=== PATIENT | female | born 1970 | race Caucasian/White ===

== ENCOUNTER 2020-04-22 10:13 | Emergency (ER) | payer MEDICARE, MEDICAID, SELFPAY ==
[2020-04-22 10:16] VITALS: BP 166/90; PULSE 93; RESP 18; TEMP 36.4; O2SAT 99; BMI 29.2
[2020-04-22 10:24] VITALS: BP 166/90; PULSE 91; RESP 24; O2SAT 100
--- NOTE | 2020-04-22 10:24 | ED_ITS ---
HPI - Eye Problem General: Chief complaint: Eye Problems Stated complaint: L EYE PAIN Time Seen by Provider: 04/22/20 10:24 History of Present Illness: HPI Narrative: Patient is a 50-year-old female comes to the ED with left eye pain. Patient says she has had history of glaucoma and left eye and her previous eye doctor had to relieve pressure. Patient just moved to [place] from [place]. She does not currently have an eye doctor here in [place]. Acute eye pain started last night. She is also reporting having blurry vision out of the left eye as well. Associated symptoms: Denies fever(s), headache(s), nausea, neck pain or vomiting Review of Systems Const: Denies: fever(s), chills or fatigue Eyes: Reports: blurry vision (left eye), eye discomfort (left eye) and eye discharge (eyes are watering); Denies: change in vision ENMT: Denies: throat pain, odynophagia, nasal discharge or nasal congestion Card: Denies: chest pain, palpitations, edema, swelling of feet/ankles, dyspnea on exertion or orthopnea Resp: Denies: dyspnea, productive cough or non-productive cough GI: Denies: abdominal pain, nausea, vomiting, diarrhea, constipation or hematochezia : Denies: flank pain, dysuria or hematuria Musc: Denies: neck pain, back pain or extremity swelling Skin/Breast: Denies: rash or new lesions Neuro: Denies: headache(s), numbness in extremities or weakness in extremities Physical Exam Const: COMMON NORMALS: patient oriented x3 and alert GENERAL APPEARANCE: cooperative; not comfortable (pt uncomfortable and moaning out in pain.) HENMT: COMMON NORMALS: normocephalic HEAD & SCALP: normocephalic MOUTH: Normal oral and palatal mucosa present THROAT: posterior oropharynx normal and uvula midline Eye: COMMON NORMALS: Equal, round and reactive pupils present and conjunctivae normal PERIORBITAL: periorbital findings normal CONJUNCTIVA: Yes conjunctivae normal PUPIL: Yes Equal, round and reactive pupils present OTHER: Patient's left eye was watering and was tender to the touch. iCare Tonometer- Right eye-22mmhg. Left Eye--first test 71mmhg and 2nd 55mmhg Neck/C-Spine: COMMON NORMALS: supple GENERAL: Yes normal visual inspection Resp: COMMON NORMALS: normal respiratory effort, No retractions, No use of accessory muscles and clear to auscultation bilaterally AUSCULTATION: clear to auscultation bilaterally Cardio: COMMON NORMALS: regular rate, regular rhythm, S1 normal heart sound present, S2 normal heart sound present, No gallops present (Cardio), No clicks present (Cardio), No murmurs present (Cardio) and Peripheral pulses 2+ throughout RATE: regular rate RHYTHM: regular rhythm HEART SOUNDS: S1 normal heart sound present and S2 normal heart sound present PERIPHERAL PULSES: Peripheral pulses 2+ throughout GI: COMMON NORMALS: Normal to inspection, nondistended, normoactive bowel sounds present, Soft to palpation, non-tender and no masses PALPATION: Yes Soft to palpation : COMMON NORMALS: Yes no CVA tenderness BLADDER/KIDNEY EXAM: Yes no CVA tenderness Back/Pelvis: COMMON NORMALS: no CVA tenderness Extremity: COMMON NORMALS: normal to inspection Neuro: COMMON NORMALS: patient oriented x3 and moves all extremities SENSORIUM/ORIENTATION: Yes alert Skin: GENERAL SKIN EXAM: dry skin Course Consultations: Consultation #1: I contacted Dr. Banegas the eye doctor and told him about patient case and Icare tonometer readings in the left eye. He recommended I give patient 500 mg of Diamox and send patient over to his clinic [facility]. Vital Signs: Vital signs: Vital Signs Temperature 98.9 F 04/22/20 11:35 Pulse Rate 95 04/22/20 11:35 Respiratory Rate 24 H 04/22/20 11:35 Blood Pressure 167/90 04/22/20 11:35 Pulse Oximetry 99 04/22/20 11:35 MDM - Eye Problem MDM Narrative: Medical decision making narrative: Patient is a 50-year-old female comes to the ED with acute left eye pain. She has a history of having glaucoma in the left eye and has had to get pressure in high relieved by immigration law specialist. I performed iCare tonometer and she had elevated pressure readings in left eye. I contacted Dr. Banegas and told him about patient case and her left eye pressure readings. He wanted me to give patient 500 mg of Diamox and send her straight over to his office in [place]. I discharge patient after she received the Diamox and gave her the Dr. Banegas eye clinic contact information. I told her to go straight over to Dr. Banegas eye clinic and that he is expecting her. Patient understood and agreed with plan. Discharge Plan Discharge Patient Disposition: Home Clinical Impression: Glaucoma (increased eye pressure) Qualifiers: Glaucoma type: unspecified Laterality: left Qualified Code(s): H40.9 - Unspecified glaucoma Condition: Stable Prescriptions: No Action Tylenol 325 mg Tablet 1,300 mg PO PRN RF: 0 levothyroxine 125 mcg tablet See Rx Instructions .ROUTE .COMPLEX RF: 0 omeprazole 20 mg Capsule,Delayed Release(Dr/Ec) 20 mg PO DAILY PRN (Reason: Acid Reflux) RF: 0 lisinopril-hydrochlorothiazide 10-12.5 mg tablet 1 tab PO DAILY RF: 0 Discharge Orders: Discharge ED (Routine); Ordered 04/22/20 Ordered By: Brando Amado Referrals: ZOE Pereira, SNEHA [Nurse Practitioner] - Discharge Diet: Regular Discharge Activity: Resume usual activity Patient Instructions: Glaucoma (ED) Activity Restrictions/Additional Instructions: Follow-up with medical provider as directed. Leave the ED here directly go to [facility] at [address] in [facility]. Their phone number is [phone]. I spoke with Dr. Banegas and he is expecting you. Return to the ER or your medical provider if condition worsens. Please read and understand angy rhoades instructions. If any questions, please ask. Coding Level of Care Code ED Pan Devulcanizer for Dutch Fwd Exam Comprehensive
[2020-04-22 10:41] VITALS: RESP 20
[2020-04-22] MEDS: morphine 4 mg/mL SDV 1 mL IM (10:41)
--- NOTE | 2020-04-22 10:43 | PC.PHAR ---
pt states she is suppose to be taking lisinopril/hctz 10-12.5 daily,levothyroxine 125mcg daily-ext med history shows last filled on 10/28/2019 pt states she takes when she can afford them and that she has insurance now so she can get them-pt states she had some lisinopril/hctz left so she took one today 04/22/20
[2020-04-22] MEDS: HYDROcodone-acetaminophen 7.5-325 mg Tablet 1 TAB PO (11:32)
[2020-04-22] MEDS: acetaZOLAMIDE 250 mg Tablet 500 MG PO (11:33)
[2020-04-22 11:35] VITALS: BP 167/90; PULSE 95; RESP 24; TEMP 37.2; O2SAT 99
== END 2020-04-22 11:37 | disposition home or self-care (01) ==
PROVIDERS: Emergency Provider Physician Assistant; PCP Nurse Practitioner Family
DX: H40.9 Unspecified glaucoma (principal)
CPT/HCPCS: 12345; 96372; 99281; 99283; J2270

== ENCOUNTER 2021-03-13 09:49 | Outpatient (CLI) | payer MEDICARE, MEDICAID, SELFPAY ==
[2021-03-13 10:18] VITALS: BP 139/83; PULSE 89; RESP 19; TEMP 36.6; O2SAT 99
[2021-03-13 11:07] VITALS: BP 148/87; PULSE 84; RESP 17; TEMP 36.8; O2SAT 99
[2021-03-13 11:59] VITALS: BP 170/90; PULSE 84; RESP 16; TEMP 36.8; O2SAT 99
== END 2021-03-13 09:50 | disposition home or self-care (01) ==
LOC: OPS 09:52
PROVIDERS: PCP Nurse Practitioner Family; Visit Provider Family Medicine
DX: U07.1 COVID-19 (principal)
CPT/HCPCS: 96365